=== PATIENT | female | born 1950 | race Caucasian/White ===

== ENCOUNTER 2020-08-24 22:16 | Emergency (ER) | payer MEDICARE, OTHER ==
[2020-08-24] MEDS ORDERED: DICLOFENAC SODI75 MG PO (23:52)
[2020-08-24] MEDS ORDERED: CYCLOBENZAPRINE10 MG PO (23:52)
[2020-12-22] MEDS ORDERED: CLONAZEPAM0.5 MG PO (13:06)
[2020-12-22] MEDS ORDERED: OS-CAL500 MG PO (13:06)
[2020-12-22] MEDS ORDERED: AMLODIPINE BESY10 MG PO (13:06)
[2020-12-22] MEDS ORDERED: SYNTHROID50 MCG PO (13:07)
[2020-12-22] MEDS ORDERED: FLONASE ALLER15.8 ML (13:07)
[2020-12-22] MEDS ORDERED: HYZAAR 50-12.51 EACH PO (13:07)
[2020-12-22] MEDS ORDERED: OMEPRAZOLE20 M1 PO (13:08)
[2020-12-22] MEDS ORDERED: SYMBICORT 16010.2 GM PO (13:08)
[2020-12-22] MEDS ORDERED: TOPROL XL 50 MG50 MG PO (13:08)
[2020-12-22] MEDS ORDERED: VITAMIN D350 MC3 PO (13:09)
== END 2020-08-25 00:13 | disposition home or self-care (01) ==
LOC: FER 22:16
DX: S39.012A Strain of muscle, fascia and tendon of lower back, initial encounter (principal); J44.9 Chronic obstructive pulmonary disease, unspecified; E03.9 Hypothyroidism, unspecified; F17.210 Nicotine dependence, cigarettes, uncomplicated; Z79.899 Other long term (current) drug therapy; X58.XXXA Exposure to other specified factors, initial encounter
CPT/HCPCS: 72100; J1885

== ENCOUNTER → 2020-12-22 | Day surgery (SDC) | payer MEDICARE, OTHER ==
[~2020-12-22] VITALS: Ht 162.6 cm; Wt 61.2 kg
[~2020-12-22] MED LIST: AMLODIPINE BESY10 MG PO; CLONAZEPAM0.5 MG PO; CYCLOBENZAPRINE10 MG PO; DICLOFENAC SODI75 MG PO; FLONASE ALLER15.8 ML; HYZAAR 50-12.51 EACH PO; OMEPRAZOLE20 M1 PO; OS-CAL500 MG PO; SYMBICORT 16010.2 GM PO; SYNTHROID50 MCG PO; TOPROL XL 50 MG50 MG PO; VITAMIN D350 MC3 PO
== END | disposition home or self-care (01) ==
LOC: FAS 12:34
DX: H25.813 Combined forms of age-related cataract, bilateral (principal); J44.9 Chronic obstructive pulmonary disease, unspecified; I10 Essential (primary) hypertension; M19.90 Unspecified osteoarthritis, unspecified site; E07.9 Disorder of thyroid, unspecified; F17.210 Nicotine dependence, cigarettes, uncomplicated
CPT/HCPCS: C1780; J2001; J2250; J2370; J3370

== ENCOUNTER → 2021-01-19 | Day surgery (SDC) | payer MEDICARE, OTHER ==
[~2021-01-19] VITALS: Ht 162.6 cm; Wt 64.4 kg
== END | disposition home or self-care (01) ==
LOC: FAS 12:47
DX: H26.9 Unspecified cataract (principal); I10 Essential (primary) hypertension; J44.9 Chronic obstructive pulmonary disease, unspecified; E03.9 Hypothyroidism, unspecified; M19.90 Unspecified osteoarthritis, unspecified site; K21.9 Gastro-esophageal reflux disease without esophagitis; F17.210 Nicotine dependence, cigarettes, uncomplicated; Z88.5 Allergy status to narcotic agent; Z79.899 Other long term (current) drug therapy
CPT/HCPCS: J2250; J2370; V2632